=== PATIENT | male | born 1960 | race Caucasian/White ===

== ENCOUNTER 2018-06-08 15:41 | Emergency (ER) | payer OTHER ==
[~2018-06-08] VITALS: Ht 165.1 cm; Wt 120.7 kg
--- NOTE | ~2018-06-08 | EKG ---
[place], [place] ELECTROCARDIOGRAM REPORT NAME: YISSEL UMAÑA UNIT #: [id number] ROOM: DOCTOR: EPIPHANY DRAFT REPORT BIRTHDATE: [birth year] [facility] Test Date: 2018-06-08 Test Time: 16:30:48 Pat Name: YISSEL UMAÑA Department: Room: Gender: Slot Machine Department Floorperson: SS RESP : 1960 Requested By: BRIAN RUSSELL PA-C Order Number: [id number] Reading MD: Xochitl Candelaria MD Measurements Intervals [place] Rate: 62 P: 54 [place]: 186 QRS: 213 QRSD: 111 T: 63 QT: 433 QTc: 440 Interpretive Statements Sinus rhythm Consider right ventricular hypertrophy Baseline wander in lead(s) I,II,aVR,V2 Electronically Signed On 06-11-2018 12:06:36 PDT by Xochitl Candelaria MD CM:EKGRPT:ELECTROCARDIOGRAM REPORT [id number] BRIAN RUSSELL PA-C EPIPHANY DRAFT REPORT BRIAN RUSSELL PA-C
[~2018-06-08 15:41] MED LIST: ASPIRIN LOW DOS81 MG PO; ATORVASTATIN CA40 M1 PO; DOC-Q-LACE100 MG PO; FEOSOL325 MG PO; GLUCOPHAGE500 M1 PO; K-TAB20 MEQ PO; LASIX40 MG PO; OXYCODONE5 M1 PO; PACERONE400 MG PO; PROTONIX20 MG PO; TOPROL XL25 MG PO; VITAMIN C500 M4 PO; ZESTRIL5 MG PO
[2018-06-08 16:44] LABS: BASO # 0.1 10*3/uL (0.0-0.1); BASO % 0.6 % (0.0-1.0); EOS # 0.1 10*3/uL (0.0-0.4); EOS % 1.3 % (1.0-4.0); HEMATOCRIT 41.6 % (42.0-52.0); HEMOGLOBIN 14.6 g/dl (14.0-18.0); LYMPH # 2.1 10*3/uL (1.3-4.4); LYMPH % 24.2 % (27.0-41.0); MEAN CELL VOLUME 85.4 fl (80.0-94.0); MEAN CORPUSCULAR HGB CONC 35.1 g/dl (33.0-37.0); MEAN PLATELET VOLUME 9.8 fl (9.6-12.3); MONO # 0.5 10*3/uL (0.1-1.0); MONO % 5.5 % (3.0-9.0); NEUT # 5.8 10*3/uL (2.3-7.9); PLATELET COUNT AUTOMATED 143 10*3/uL (130-400); RED BLOOD COUNT 4.87 10*6/uL (4.50-5.90); RED CELL DISTRI WIDTH 12.4 % (0-14.5); WHITE BLOOD COUNT 8.5 10*3/uL (4.8-10.8)
[2018-06-08 17:00] LABS: ALBUMIN 3.9 gm/dl (3.1-4.5); ALKALINE PHOSPHATASE 66 U/L (45-117); BUN 10 mg/dl (7-24); CHLORIDE 102 mmol/L (98-107); CREATININE 0.86 mg/dL (0.70-1.30); POTASSIUM 4.1 mmol/L (3.5-5.1); SGOT/AST 17 IU/L (3-35); SGPT/ALT 32 U/L (12-78); SODIUM 136 mmol/L (136-145); TOTAL PROTEIN 7.6 gm/dL (6.4-8.2)
[2018-06-08 17:03] LABS: TROPONIN I < 0.015 ng/ml (<0.045)
== END 2018-06-08 18:08 | disposition home or self-care (01) ==
LOC: ED 15:41
PROVIDERS: Physician Assistant
DX: R03.0 Elevated blood-pressure reading, without diagnosis of hypertension (principal); R20.2 Paresthesia of skin; I25.2 Old myocardial infarction

== ENCOUNTER 2019-12-22 10:24 | Inpatient (IN) | payer OTHER ==
[~2019-12-22] VITALS: Ht 165.1 cm; Wt 120.3 kg
[2019-12-22] VITALS (8 sets, daily range): BP systolic 146–218; BP diastolic 72–98
[2019-12-22 10:43] LABS: BASO % 0.4 % (0.0-1.0); EOS # 0.1 10*3/uL (0.0-0.4); EOS % 1.1 % (1.0-4.0); HEMATOCRIT 45.2 % (42.0-52.0); LYMPH # 1.1 10*3/uL (1.3-4.4); LYMPH % 14.8 % (27.0-41.0); MEAN CELL VOLUME 85.3 fl (80.0-94.0); MEAN CORPUSCULAR HGB 29.2 pg (27.0-31.0); MEAN CORPUSCULAR HGB CONC 34.3 g/dl (33.0-37.0); MONO # 0.5 10*3/uL (0.1-1.0); MONO % 7.3 % (3.0-9.0); NEUT # 5.6 10*3/uL (2.3-7.9); PLATELET COUNT AUTOMATED 146 10*3/uL (130-400); RED CELL DISTRI WIDTH 12.2 % (0-14.5); WHITE BLOOD COUNT 7.4 10*3/uL (4.8-10.8)
[2019-12-22 11:00] LABS: ALKALINE PHOSPHATASE 83 U/L (45-117); BUN 18 mg/dl (7-24); CHLORIDE 97 mmol/L (98-107); CREATININE 1.11 mg/dL (0.70-1.30); POTASSIUM 4.6 mmol/L (3.5-5.1); SGOT/AST 14 IU/L (3-35); SGPT/ALT 28 U/L (12-78); SODIUM 134 mmol/L (136-145)
[2019-12-22 11:04] LABS: TROPONIN I < 0.015 ng/ml (<0.045)
[2019-12-22] MEDS ORDERED: CRESTOR20 M1 PO (15:35)
[2019-12-22] MEDS ORDERED: LISINOPRIL5 MG PO (15:35)
[2019-12-22] MEDS ORDERED: PROTONIX40 MG PO (15:36)
[2019-12-22] MEDS ORDERED: TOPROL XL25 MG PO (15:36)
[2019-12-22] MEDS ORDERED: ASPIRIN CHEWABL81 MG PO (15:37)
[2019-12-22] MEDS ORDERED: GLUCOPHAGE500 M1 PO (15:37)
[2019-12-22] MEDS ORDERED: PLAVIX75 M1 PO (15:37)
== END 2019-12-22 21:07 | disposition short-term general hospital (02) | DRG 281 ==
LOC: ED 10:24 → 4NE 12:08 → EDHOLD 12:08 → 4NE 12:30
PROVIDERS: Emergency Medicine; ADMIT Internal Medicine
DX: I21.4 Non-ST elevation (NSTEMI) myocardial infarction (principal); I16.1 Hypertensive emergency; E87.1 Hypo-osmolality and hyponatremia; E87.2 Acidosis; Z68.41 Body mass index [BMI] 40.0-44.9, adult; I10 Essential (primary) hypertension; I25.10 Atherosclerotic heart disease of native coronary artery without angina pectoris; E11.65 Type 2 diabetes mellitus with hyperglycemia; E78.5 Hyperlipidemia, unspecified; E11.69 Type 2 diabetes mellitus with other specified complication; E66.01 Morbid (severe) obesity due to excess calories; M19.90 Unspecified osteoarthritis, unspecified site; Z95.5 Presence of coronary angioplasty implant and graft; Z87.891 Personal history of nicotine dependence; Z95.1 Presence of aortocoronary bypass graft; I25.2 Old myocardial infarction; Z83.79 Family history of other diseases of the digestive system; Z79.82 Long term (current) use of aspirin; Z79.899 Other long term (current) drug therapy; Z79.84 Long term (current) use of oral hypoglycemic drugs

== ENCOUNTER 2020-01-17 12:11 | Emergency (ER) | payer OTHER ==
[~2020-01-17] VITALS: Ht 165.1 cm; Wt 118.8 kg
[~2020-01-17 12:11] MED LIST changes: +ASPIRIN CHEWABL81 MG PO; +CRESTOR20 M1 PO; +LISINOPRIL5 MG PO; +PLAVIX75 M1 PO; +PROTONIX40 MG PO
[2020-01-17 12:53] LABS: BASO % 0.4 % (0.0-1.0); EOS # 0.1 10*3/uL (0.0-0.4); EOS % 1.7 % (1.0-4.0); HEMATOCRIT 39.5 % (42.0-52.0); LYMPH # 1.5 10*3/uL (1.3-4.4); LYMPH % 18.4 % (27.0-41.0); MEAN CELL VOLUME 86.1 fl (80.0-94.0); MEAN CORPUSCULAR HGB 29.6 pg (27.0-31.0); MEAN CORPUSCULAR HGB CONC 34.4 g/dl (33.0-37.0); MEAN PLATELET VOLUME 9.7 fl (9.6-12.3); MONO # 0.5 10*3/uL (0.1-1.0); MONO % 6.3 % (3.0-9.0); NEUT % 73.1 % (47.0-73.0); PLATELET COUNT AUTOMATED 153 10*3/uL (130-400); RED BLOOD COUNT 4.59 10*6/uL (4.50-5.90); RED CELL DISTRI WIDTH 12.4 % (0-14.5); WHITE BLOOD COUNT 8.2 10*3/uL (4.8-10.8)
[2020-01-17 13:03] LABS: ACT PARTIAL THROMBO TIME 25.2 SECONDS (20.0-32.1)
[2020-01-17 13:08] LABS: ALBUMIN 3.8 gm/dl (3.1-4.5); ALKALINE PHOSPHATASE 62 U/L (45-117); BUN 15 mg/dl (7-24); CHLORIDE 107 mmol/L (98-107); CREATININE 0.88 mg/dL (0.70-1.30); POTASSIUM 3.9 mmol/L (3.5-5.1); SGOT/AST 15 IU/L (3-35); SGPT/ALT 27 U/L (12-78); SODIUM 137 mmol/L (136-145); TOTAL PROTEIN 7.5 gm/dL (6.4-8.2)
[2020-01-17 13:13] LABS: TROPONIN I < 0.015 ng/ml (<0.045)
== END 2020-01-17 15:57 | disposition home or self-care (01) ==
LOC: ED 12:11
PROVIDERS: Emergency Medicine
DX: I20.8 Other forms of angina pectoris (principal); E11.9 Type 2 diabetes mellitus without complications; I10 Essential (primary) hypertension; Z79.899 Other long term (current) drug therapy; Z79.82 Long term (current) use of aspirin; Z87.891 Personal history of nicotine dependence